=== PATIENT | male | born 1985 | race Caucasian/White ===

== ENCOUNTER 2021-12-10 06:18 | Emergency (ER) | payer OTHER, SELFPAY ==
[2021-12-10] VITALS (19 sets, daily range): BP systolic 133–153; BP diastolic 84–100; PULSE 94; RESP 18; TEMP 36.6; O2SAT 100
--- NOTE | ~2021-12-10 | CT_ITS ---
EXAMINATION: CT abdomen pelvis w con DATE: 12/10/2021 07:46 INDICATION: Right lower quadrant abdominal pain. Nausea. TECHNIQUE: Computed tomography (CT) of the abdomen and pelvis was performed with 100 mL Omnipaque 350 intravenous contrast. Automated exposure control and iterative reconstruction technique were employe d. The dose-length product was 361.48 mGy-cm. COMPARISON: None. FINDINGS: The visualized portions of the lung bases demonstrate mild atelectasis. No pleural effusion . The heart size is normal. No pericardial effusion. The liver, gallbladder, spleen, pancreas, adrena l glands, and left kidney are normal. There is a 6 mm stone in right kidney. There is mild right hydr onephrosis and hydroureter. There is a 6 mm stone in proximal right ureter. There are no dilated loop s of bowel. The appendix is normal. There are no pathologically enlarged lymph nodes. There is no celina e intraperitoneal fluid. There is mild thoracolumbar spondylosis. IMPRESSION: 1. 6 mm stone in proximal right ureter with mild right hydronephrosis and hydroureter. 2. 6 mm nonobstructing right kidney stone. Reviewed, dictated and finalized at location A. R EXCAVATOR OPERATOR IMPRESSION: 1. 6 mm stone in proximal right ureter with mild right hydronephrosis and hydro ureter. 2. 6 mm nonobstructing right kidney stone.
--- NOTE | ~2021-12-10 | XR_ITS ---
XR abdomen/kub 1V DATE: 12/10/2021 09:53 INDICATION: Right abdominal pain. Proximal right ureteral 6 mm calculus, mild right hydronephrosis an d hydroureter TECHNIQUE: AP projection, 2 views COMPARISON: December 10, 2021 CT abdomen pelvis FINDINGS: There is continued obstruction of the right ureter at the L3-4 level, with right hydrourete ronephrosis to this level. The urinary bladder is distended. Nonspecific bowel gas pattern, with multiple nondilated gas containing small bowel segments. The lung bases are clear. IMPRESSION: Persistent moderate right hydroureteronephrosis due to obstruction by ureteral calculus a t right L3-4 level Reviewed, dictated and finalized at [facility]. Reviewed, dictated and finalized at location B. STOS REMOVAL WORKER IMPRESSION: Persistent moderate right hydroureteronephrosis due to obstruction by ureteral calculus at right L3-4 level
[2021-12-10 06:45] LABS: Basophils Absolute Auto 0.1 K/mm3 (0.0-0.1); Basophils Percent Auto 0.7 % (0.2-1.2); Eosinophils Absolute Auto 0.1 K/mm3 (0-0.3); Eosinophils Percent Auto 1.9 % (0-4.4); Hematocrit 44.6 % (42.0-52.0); Hemoglobin 14.5 g/dL (14.0-18.0); Immature Granulocyte Absolute 0.04 K/mm3 (0.00-0.031); Immature Granulocyte Percent A 0.5 % (0-0.5); Lymphocytes Absolute Auto 2.51 K/mm3 (0.9-3.2); Lymphocytes Percent Auto 34.3 % (18.3-44.2); Mean Corpuscular HGB Conc 32.5 g/dl (32-36); Mean Corpuscular Hemoglobin 29.1 pg (26-34); Mean Corpuscular Volume 89.4 fl (80-100); Monocytes Absolute Auto 0.6 K/mm3 (0.1-0.6); Monocytes Percent Auto 8.2 % (2.6-8.5); Neutrophils Percent Auto 54.4 % (45.5-73.1); Platelet Count Result 236 k/mm3 (150-375); Red Blood Count 4.99 M/mm3 (4.6-6.20); Red Cell Distribution Width 13.3 % (11.5-14.5); White Blood Count 7.3 K/mm3 (4.5-10.0)
[2021-12-10 06:51] LABS: Add Urine Microscopic? YES; Appearance Urine Clear (Clear); Bilirubin Urine Negative (Negative); Blood Urine 2+ (Negative); Color Urine Yellow (Yellow); Glucose Urine UA Negative (Negative); Ketones Urine 1+ mg/dL (Negative); Leukocyte Esterase Ur Negative LEU/UL (Negative); Mucus Urine Rare /lpf; Nitrate Urine Negative (Negative); Protein Urine Negative (Negative); RBC Urine 51-75 /hpf (0-2); Specific Grav Ur 1.018 (1.001-1.035); Urobilinogen Urine Negative mg/dL (<2.0); WBC Urine 0-3 /hpf
[2021-12-10 07:00] LABS: Alanine Aminotransferase 31 U/L (4-50); Albumin Level 4.5 g/dL (3.5-5.1); Alkaline Phosphatase 88 U/L (38-126); Anion Gap 11 mmol/L (8-16); Aspartate Amino Transferase 33 U/L (17-59); Bilirubin,Total 0.7 mg/dL (0.2-1.3); Blood Urea Nitrogen 17 mg/dL (9-20); Calcium 9.3 mg/dL (8.4-10.2); Carbon Dioxide 29 mmol/L (22-30); Chloride 98 mmol/L (98-107); Estimated CRCL calculation 88 ml/min; Estimated Glomerular Filt Rate > 60; Glucose 153 mg/dL (65-110); Lipase 173 U/L (23-300); Potassium 4.1 mmol/L (3.4-5.0); Sodium 138 mmol/L (137-145)
[2021-12-10] MEDS: SODIUM CHLORIDE 0.9% IV 1,000 ML 999 ML IV CONT (07:29)
--- NOTE | 2021-12-10 07:40 | ED.ABDPAIN ---
HPI - Abdominal Pain General Chief Complaint: Abdominal Pain Stated Complaint: abd pain Time Seen by Provider: 12/10/21 07:19 Source: patient and family Limitations: no limitations History of Present Illness HPI narrative: Patient presents with pain at the right lower abdomen, sharp, no radiation associated with nausea started at 5:30 AM while trying to have a bowel movement. Currently the pain is little bit less tense than at the beginning. Patient denies history of abdominal surgery, fever, chills, vomiting, urinary symptoms or constipation Related Data Allergies Allergy/AdvReac Type Severity Reaction Status Date / Time No Known Allergies Allergy Verified 12/10/21 06:22 Review of Systems Review of Systems: CONSTITUTIONAL: Denies fever, chills, or sweats. EYES: Denies visual changes, redness, or discharge. ENT: Denies rhinorrhea, congestion, sore throat, or otalgia. CARDIOVASCULAR: Denies chest pain, palpitations, or edema. RESPIRATORY: Denies cough or dyspnea. GASTROINTESTINAL: Denies abdominal pain, nausea, vomiting, or diarrhea. GENITOURINARY: Denies dysuria or hematuria. SKIN: Denies rash or itching. MUSCULOSKELETAL: Denies back pain, joint pain, or myalgia. NEUROLOGIC: Denies headache, numbness, or weakness. PSYCHIATRIC: Denies anxiety or depression. [facility] Family History Family History Mother Family history of elevated blood lipids Other Cerebrovascular accident Diabetes mellitus Family history of coronary artery disease Hypertension Social History Social History Smoking status: Never smoker Alcohol intake: current Exam Narrative: General appearance: Well-developed, well-nourished Skin: Normal color Head: Normocephalic, nontraumatic Eyes: Clear conjunctiva ENT: Oropharynx normal, ears normal, nose normal Neck: Supple, nontender Chest and respiratory: Airway patent, no respiratory distress, no accessory muscle use Heart: Regular rate/rhythm Abdomen: Soft, mild to moderate tenderness right upper quadrant, quiet bowel sounds Vascular: Normal peripheral pulses, normal capillary refill. Musculoskeletal: Normal range of motion, nontender back Neurologic: Alert and oriented ?3, FOOD VENDOR is normal as tested, no gross motor deficit Course Course Emergency Course: Stable Consultations Consultation #1: Dr. Dumont, urologist, lithotripsy tomorrow Date: 12/10/21 Time: 10:46 Vital Signs Vital signs: Vital Signs Temperature 36.6 C 12/10/21 06:23 Pulse Rate 94 12/10/21 06:23 Respiratory Rate 18 12/10/21 06:23 Blood Pressure 148/100 H 12/10/21 06:23 Pulse Oximetry 100 12/10/21 06:23 Temperature 36.6 C 12/10/21 06:23 Pulse Rate 94 12/10/21 06:23 Respiratory Rate 18 12/10/21 06:23 Blood Pressure 148/100 H 12/10/21 06:23 Pulse Oximetry 100 12/10/21 06:23 MDM - Abdominal Pain MDM Narrative Medical decision making narrative: Work-up showed 6 mm stone right proximal ureter, urology was notified, scheduled for lithotripsy tomorrow Lab Data Result diagrams: 12/10/21 06:29 12/10/21 06:29 Labs: Lab Results 12/10/21 12/10/21 12/10/21 Range/Units 06:29 06:29 06:41 WBC 7.3 (4.5-10.0) K/mm3 RBC 4.99 (4.6-6.20) M/mm3 Hgb 14.5 (14.0-18.0) g/dL Hct 44.6 (42.0-52.0) % MCV 89.4 (80-100) fl MCH 29.1 (26-34) pg MCHC 32.5 (32-36) g/dl RDW 13.3 (11.5-14.5) % Plt Count 236 (150-375) k/mm3 MPV 9.0 (7.4-10.4) fl Immature Gran % (Auto) 0.5 (0-0.5) % Neut % (Auto) 54.4 (45.5-73.1) % Lymph % (Auto) 34.3 (18.3
--- NOTE | 2021-12-10 07:40 | PC.NURSE ---
Patient transported out of ED to CT. Patient states he only has mild, tolerable pain at this time.
[2021-12-10] MEDS: ONDANSETRON INJ 4 MG/2 ML VIAL IV PUSH (08:14)
[2021-12-10] MEDS: HYDROmorphone HCL INJ (*CRX) 1 MG/ML SYR 0.5 MG IV PUSH (08:14)
[2021-12-10] MEDS: TAMSULOSIN HCL 0.4 MG CAPSULE PO (09:21)
--- NOTE | 2021-12-10 10:01 | PC.NURSE ---
Patient returned from Radiology. Resting comfortably with significant other at bedside. Call light within reach.
--- NOTE | 2021-12-10 12:25 | WPDURCON ---
Assessment and Plan Assessment and plan (1) Kidney stone: Code(s): N20.0 - Calculus of kidney Status: Acute Assessment and Plan: NOn obstructive, will attempt to treat during Right ESWL. (2) Ureteral stone with hydronephrosis: Code(s): N13.2 - Hydronephrosis with renal and ureteral calculous obstruction Status: Acute Assessment and Plan: Ok to discharge home on pain meds, anti-emetics, and to strain urine. Will plan to schedule a RIght ESWL tomorrow at [facility] with Dr. Dumont. Do not take any NSAID's. Urology Consult Note HPI Date Seen: 12/10/21 Primary Care Provider: Tomás Holm MD Consult Narrative Narrative: Reji Sandy is a 36 year old male who presented to the ER this morning after acute onset of pelvic pain, nausea and frequency to urinate during a BM this morning around 0500am. He denies dysuria, hematuria, flank pain or fever. WBC is 7.3, Creatinine is 1.00, UA shows 2+ blood only, no urine culture obtained. CT shows a 6mm right proximal ureteral stone and mild right hydronephrosis as well as a 6mm non obstructive right renal stone. His pain and nausea are now well controlled with medications. KUB was done but stone is not well visualized d/t contrast, however hydro is noted on KUB indicating obstruction of stone. He has no prior history of kidney stones. Review of Systems Cardiovascular: Cardiovascular: Denies chest pain Respiratory: Respiratory: Reports no additional respiratory complaints Gastrointestinal: Gastrointestinal: Reports abdominal pain, Reports nausea and Denies vomiting Genitourinary: Genitourinary: Denies hematuria, Denies dysuria, Denies flank pain and Reports urinary urgency [facility] Past Medical History Medical History BMI 26.0-26.9,adult BMI 27.0-27.9,adult Dermatitis Mixed hyperlipidemia Viral wart on finger Resolved with cryotherapy Surgical History Surgical History S/P lateral meniscal repair Family History Family History Mother Ureter cancer Grandparent Diabetes mellitus Grandparent Acute myocardial infarction Heart disease Hypertension Grandparent Dementia Grandparent Acute myocardial infarction Cerebrovascular accident Hypertension Mother Family history of elevated blood lipids Other Family history of coronary artery disease Social History Social History Smoking packs per day: 0 Smoking cigarettes per day: 0.0 Years smoked: 0 Smoking pack-years: 0.00 Smoking status: Never smoker Alcohol intake: never Substance use: never Gender identity (if verbalized by the patient): Male Spiritual care concerns: No Meds Home Medications and Allergies Home Medications Medication Instructions Recorded Confirmed Type No Home Medications 07/29/21 07/29/21 History hydrocodone-acetaminophen 1 tablet PO Q4H #20 tablet 12/10/21 Rx ondansetron 4 mg PO Q4H #10 tablet 12/10/21 Rx tamsulosin [Flomax] 0.4 mg PO DAILY #10 cap 12/10/21 Rx Allergies Allergy/AdvReac Type Severity Reaction Status Date / Time No Known Allergies Allergy Verified 12/10/21 12:18 Vital Signs Vital Signs - 24 hr 12/10/21 06:23 12/10/21 07:02 12/10/21 07:50 Temperature 97.8 F Pulse Rate 94 Respiratory Rate 18 Blood Pressure 148/100 H 144/98 H Pulse Oximetry 100 100 12/10/21 07:51 12/10/21 08:00 12/10/21 08:02 Temperature Pulse Rate Respiratory Rate Blood Pressure 153/94 H 151/99 H Pulse Oximetry 100 100 100 12/10/21 08:15 12/10/21 08:30 12/10/21 08:45 Temperature Pulse Rate Respiratory Rate Blood Pressure Pulse Oximetry 100 100 100 12/10/21 09:00 12/10/21 09:02 12/10/21 09:15 Te
== END 2021-12-10 11:07 | disposition home or self-care (01) ==
PROVIDERS: Emergency Medicine; Emergency Provider Emergency Medicine; PCP Family Medicine
DX: N13.2 Hydronephrosis with renal and ureteral calculous obstruction (principal); E78.5 Hyperlipidemia, unspecified
CPT/HCPCS: 36415; 74018; 74177; 80053; 81001; 83690; 85025; 96361; 96374; 96375; 99284; A9270; J1170; J2405; J7030; Q9967

== ENCOUNTER → 2021-12-11 09:18 | Outpatient (CLI) | payer OTHER, SELFPAY ==
[2021-12-11 12:27] LABS: SARS-CoV-2 RNA PCR Negative
== END ==
PROVIDERS: PCP Family Medicine; Visit Provider Urology
DX: Z01.812 Encounter for preprocedural laboratory examination (principal); Z20.822 Contact with and (suspected) exposure to COVID-19
CPT/HCPCS: C9803; U0003; U0005

== ENCOUNTER 2021-12-12 01:07 | Day surgery (SDC) | payer OTHER, SELFPAY ==
[2021-12-11 09:40] VITALS: BMI 26.6
--- NOTE | 2021-12-11 09:46 | PC.NURSE ---
Report to the Outpatient Waiting Room, entrance under the green pavilion located off [facility], at time 1100 on date 12/12/21. OR Time: 1300. - You and your visitor will be asked a series of questions to screen for COVID 19 for your protection. - A mask is required within the hospital. One visitor will be allowed to accompany the patient into the hospital. Patients visitor will be instructed to remain with patient at all times or leave the building. We will allow the visitor to come back to the postoperative area when patient is ready. Preoperative COVID Testing Requirements: COVID TEST 12/11 AT 0945 No COVID Test needed if: (proof is required; if not received patient will have Rapid Test prior to entry) - Patient has received COVID Vaccine at least 14 days prior to procedure date or - Patient has positive COVID test result within last 90 days of surgery date. COVID Test needed if above criteria is not met If not COVID vaccinated a COVID test must be conducted within 72 hours of surgery and patient is asked to isolate self from time of testing until procedure. You will go to the [facility] for your COVID testing. The [facility] site is located at the corner of [address] from [facility]. You will only be called if COVID results are positive and your surgeon may reschedule your elective surgery date. Patients may have clear liquids (water, carbonated beverages, clear teas, apple juice) until 3 hours prior to surgery with a maximum of 20 ounces. - No food from midnight until time of surgery Take the following medications with a SIP of water the morning of surgery: PAIN PILL (IF NEEDED) Medications to discontinue per physician: N/A Date to take last dose: N/A Please no make-up, nail guamanian, hairspray, perfume, deodorant, or body powder the day of surgery. No jewelry (including any body piercings) or valuables the day of surgery, leave them at home. Please take a shower or bath the night before, or the morning of, surgery with an antibacterial soap. Wear comfortable, loose fitting clothing. Children are encouraged to wear pajamas. - Jewelry must be removed prior to entering the operating room. Rings and piercings that are not removed may be cut off. - The hospital will not accept responsibility for valuables. - Please leave all valuables, including medications, at home the day of surgery. If you are going home after surgery, a licensed stage driver must drive you home. - NO public transportation without another adult. - We recommend that an adult stay with you for 24 hours following discharge. - We also recommend that you do not drive, make important decision, drink alcoholic beverages, or take any drugs that were not prescribed by your health care provider for at least 24 hours after your discharge time. Follow any additional instructions given to you from your surgeon. Telephone instructions given to NOEMY DUNLAP and asked if any additional questions and then verbalized understanding. Patient advised to call surgeon office or pre surgery nurse liaison [phone] if any additional questions.
[2021-12-12] VITALS (7 sets, daily range): BP systolic 118–132; BP diastolic 68–86; PULSE 49–60; RESP 10–18; TEMP 36.3–36.9; O2SAT 100
--- NOTE | ~2021-12-12 | XR_ITS ---
EXAMINATION: XR retrograde pyelo w/stent RT DATE: 12/12/2021 14:56 INDICATION: Right-sided renal stone TECHNIQUE: 4 fluoroscopic images of the abdomen and pelvis were obtained during procedure performed edvin Buck. Radiologist was not present for the imaging or procedure. The amount of fluoroscopy t naman used during this procedure was 0.5 minutes. COMPARISON: 12/12/2021 FINDINGS: Images demonstrate placement of a right internal ureteral stent in expected position with loops forme d in the right renal pelvis and in the bladder. Some contrast is been injected into the right renal c ollecting system which demonstrates mild hydronephrosis. The stone seen on the prior KUB projecting o pito the right transverse process of L3 is not visualized and has either been extracted or refluxed ba ck into the contrast opacified right renal collecting system. IMPRESSION: 1. Placement of a right internal ureteral stent in expected position. 2. Previous identified stone in the proximal right ureter is not visualized and has likely been extra cted or refluxed back into the contrast opacified right renal collecting system. Correlate with proce dure note. Reviewed, dictated and finalized at location A. TEST DESK WORKER IMPRESSION: 1. Placement of a right internal ureteral stent in expected position. 2. Previous identified stone in the proximal right ureter is not visualized and has likely been extracted or refluxed back into the contrast opacified right r enal collecting system. Correlate with procedure note.
--- NOTE | ~2021-12-12 | XR_ITS ---
EXAMINATION: XR abdomen/kub 1V INDICATION: Right ureteral stone TECHNIQUE: Supine views of the abdomen were obtained on 2 radiographs. COMPARISON: 12/10/2021 FINDINGS: There is a 7 mm stone in the proximal right ureter projecting at the level of the right L3 transverse process. No additional urolithiasis identified. The bowel gas pattern is normal. IMPRESSION: 1. 7 mm stone of the proximal right ureter. Reviewed, dictated and finalized at location A. TRUCTION FLAGGER
[2021-12-12] MEDS: LACTATED RINGERS 1,000 ML 30 ML IV CONT ×2 (11:08→15:28)
--- NOTE | 2021-12-12 12:30 | WPDHPUPDATE1 ---
History and Physical Update Update Date/Time: 12/12/21 12:30 History and Physical has been reviewed, including an updated exam of the patient. There are NO changes in the patient's condition. Risks, benefits, and alternatives have been discussed and questions answered. Patient agrees to proceed with procedure. Proceed with cysto, right retrograde, right stent , possible ureterosocpy with stone extraction, laser.
--- NOTE | 2021-12-12 13:55 | WPDANESEPPF ---
Anes - Initial Pre Proc Eval Procedure: Operation Date: 12/12/21 13:00 Proposed Procedures p Cystoscopy, Right Ureteroscopy, Right Retrograde Pyelogram, Right Stone Extraction, Possible Right Stent Placement, - Chris Buck MD s Possible Holmium Laser Procedure - Chris Buck MD Date/Time: 12/12/21 13:55 Surgeon: Chris Buck MD Pre Op Diagnosis: right kidney stone Patient Data Age: 36 Gender: M Height: 1.75 m Weight: 82 kg Last Vital Signs Temp 98.4 F 12/12/21 11:08 Pulse 57 L 12/12/21 11:08 Resp 18 12/12/21 11:08 BP 119/68 12/12/21 11:08 Pulse Ox 100 12/12/21 11:08 Allergies Allergy/AdvReac Type Severity Reaction Status Date / Time No Known Allergies Allergy Verified 12/12/21 11:18 Home Medications Medication Instructions Recorded Confirmed Type hydrocodone-acetaminophen 1 tablet PO Q4H #20 tablet 12/10/21 12/11/21 Rx ondansetron 4 mg PO Q4H #10 tablet 12/10/21 12/11/21 Rx tamsulosin [Flomax] 0.4 mg PO DAILY #10 cap 12/10/21 12/11/21 Rx Patient hx anesthesia problems: none Family hx anesthesia problems: none Results Review: All pre-operative results and documents have been reviewed as part of the pre-operative evaluation. [facility] Past Medical History Medical History BMI 26.0-26.9,adult BMI 27.0-27.9,adult Dermatitis Mixed hyperlipidemia Viral wart on finger Resolved with cryotherapy Surgical History Surgical History S/P lateral meniscal repair Family History Family History Mother Ureter cancer Grandparent Diabetes mellitus Grandparent Acute myocardial infarction Heart disease Hypertension Grandparent Dementia Grandparent Acute myocardial infarction Cerebrovascular accident Hypertension Mother Family history of elevated blood lipids Other Family history of coronary artery disease Social History Social History Smoking packs per day: 0 Smoking cigarettes per day: 0.0 Years smoked: 0 Smoking pack-years: 0.00 Smoking status: Never smoker Alcohol intake: never Substance use: never Substance use type: does not use Living arrangements: with family Gender identity (if verbalized by the patient): Male Spiritual care concerns: No Anes - Eval Final PreProcedure Day of Procedure 12/12/21 13:55 Patient weight: overweight Heart: regular rate and rhythm Lungs: clear to auscultation Neurological: alert and oriented Last oral intake: >/= 8 hours ASA classification: II Emergent: no Anesthetic plan: proceed Anesthesia type and monitoring: general LMA and standard monitoring Results Review: All pre-operative results and documents have been reviewed as part of the pre-operative evaluation. Informed Consent: The patient's anesthetic plan and its attendant risks and benefits were discussed with the patient/family/POA. Questions were solicited and answers provided to the satisfaction of the patient/family/POA.
[2021-12-12] MEDS: ceFAZolin 2 GM/D5W 50 ML 2 GM/50 ML BAG IVPB (14:04)
[2021-12-12] MEDS: LIDOCAINE HCL 2% GEL UROJET 10 ML PKG MUCOUS MEM (14:17)
--- NOTE | 2021-12-12 14:51 | W.PM.PROC2 ---
Procedure Note - Detailed Date of Procedure 12/12/21 Pre-op Diagnosis right ureteral calculus 6 mm and 6 mm right renal calculus Post-op Diagnosis same Procedure Performed Cystoscopy, right retrograde pyelogram fluoroscopy was laser, stone extraction, right ureteral stent placement 4.8 Tajik contour Surgeon Chris Buck MD Anesthesia general Findings 6 mm right ureteral calculus as well as a 6 mm right renal calculus Description of Procedure Patient is taken to the operative suite correctly identified. Once anesthesia was obtained he was placed in dorsal lithotomy position and prepped and draped usual sterile fashion. A 19 Tajik scope was inserted into the urethra. There were no strictures. Prostate nonobstructive. Bladder without any tumors. Right ureteral orifice was cannulated with a guidewire. Ureteral access sheath was placed. Flexible ureteral scope was inserted the stone was localized in the proximal ureter. It was too large to retrieve 1 piece. We used the holmium laser fiber to fragment in multiple small pieces and send those for analysis. Some of the fragments went back to the kidney we will treat those. Upon evaluating the kidney there was a stone this was attached to a calyx. We went ahead and lasered this stone also in retrieve some of the larger pieces. Pyelogram was then performed to confirm placement of the stent. 4.8 Tajik contour stent was placed with the proximal end coiled in the renal pelvis and the distal in the bladder. Bladder was drained. 2% lidocaine was inserted into the urethra patient was taken recovery stable condition. He will follow up in a week's time for stent removal. Drains Yes Packing No Pathology yes Complications No immediate complications Condition stable Disposition PACU
--- NOTE | 2021-12-12 15:23 | SUR.PHASEI ---
1519 simple mask removed.
== END 2021-12-12 16:40 | disposition home or self-care (01) ==
PROVIDERS: PCP Family Medicine; Visit Provider Urology
PROC: (CPT 52352; principal; 2021-12-12 13:00)
PROC: (CPT 52356; 2021-12-12 13:00)
DX: N13.2 Hydronephrosis with renal and ureteral calculous obstruction (principal)
CPT/HCPCS: 52356; 74018; 74420; 82365; 88300; A9270; C1769; C1894; C2617; C9803; J0690; J2250; J2270; J2405; J2704; J7120; Q9966; U0003; U0005

== ENCOUNTER 2022-01-13 11:15 | Outpatient (CLI) | payer OTHER, SELFPAY ==
--- NOTE | ~2022-01-13 | XR_ITS ---
XR abdomen/kub 1V 01/13/2022 11:38 INDICATION: Right ureteral stone follow-up TECHNIQUE: KUB COMPARISON: 12/12/2021 FINDINGS: Bowel gas pattern is normal. Previously visualized right ureteral stone at the L3 level not seen on current study. There is no evidence of free air, mass, organomegaly, ascites or obstruction. No abnormal calculi are seen. The bones appear intact. IMPRESSION: 1: No acute abdominal abnormality identified. Reviewed, dictated and finalized at location A.
== END 2022-01-13 11:16 | disposition home or self-care (01) ==
PROVIDERS: PCP Family Medicine; Visit Provider Urology
DX: N20.1 Calculus of ureter (principal)
CPT/HCPCS: 74018

== ENCOUNTER 2023-08-24 11:52 | Emergency (ER) | payer OTHER, SELFPAY ==
[2023-08-24 12:02] VITALS: BP 148/85; PULSE 64; RESP 16; TEMP 36.9; O2SAT 99
[2023-08-24 12:04] VITALS: BP 148/85; PULSE 64; RESP 16; TEMP 36.9; O2SAT 99
--- NOTE | 2023-08-24 12:37 | ED.GENADULT ---
HPI - General Adult General Chief complaint: Wound/Laceration Stated complaint: Wound/Swelling Right Side Head Source: patient Mode of arrival: ambulatory Limitations: no limitations History of Present Illness HPI narrative: 38-year-old male presented for complaint of skin lesion to the right scalp x3 weeks. states it first appeared as a pimple. Has not applied anything to the site. Denies itching or pain. Endorses clear drainage at times. Denies family members with similar symptoms. Denies changes lotion soap detergent etc.. Patient also reports a small lump behind the right ear which feels like a bruise. patient has kids at home and does [employer]. Denies any other skin lesions or changes. Related Data Allergies Allergy/AdvReac Type Severity Reaction Status Date / Time No Known Allergies Allergy Verified 08/24/23 12:03 Review of Systems Review of Systems: CONSTITUTIONAL: Denies body aches, fever, chills, or sweats. EYES: Denies visual changes, redness, or discharge. ENT: Denies rhinorrhea, congestion CARDIOVASCULAR: Denies chest pain, palpitations, or edema. RESPIRATORY: Denies cough or dyspnea. GASTROINTESTINAL: Denies abdominal pain, nausea, vomiting, or diarrhea. SKIN: per HPI MUSCULOSKELETAL: Denies back pain, joint pain, or myalgia. NEUROLOGIC: Denies headache, numbness, tingling, or weakness. COUNT INCLUDES THE [facility] Past Medical History Medical History BMI 26.0-26.9,adult BMI 27.0-27.9,adult Dermatitis Mixed hyperlipidemia Viral wart on finger Resolved with cryotherapy Surgical History Surgical History S/P lateral meniscal repair Family History Family History Mother Ureter cancer Grandparent Diabetes mellitus Grandparent Acute myocardial infarction Heart disease Hypertension Grandparent Dementia Grandparent Acute myocardial infarction Cerebrovascular accident Hypertension Mother Family history of elevated blood lipids Other Family history of coronary artery disease Social History Social History Smoking packs per day: 0 Smoking cigarettes per day: 0.0 Years smoked: 0 Smoking pack-years: 0.00 Smoking status: Never smoker Alcohol intake: never Substance use: never Substance use type: does not use Living arrangements: with family Occupation/Education: occupation Gender identity (if verbalized by the patient): Male Spiritual care concerns: No Comments At time of signature, I have reviewed and agree with nursing past medical, surgical, social and family history unless otherwise noted. Please see nursing chart for further information. There is no relevant family history pertinent to the presenting complaint Exam Narrative: GENERAL: Well-appearing HEAD: Normocephalic, atraumatic. EYES: conjunctivae clear, and EOMI. ENT: Mucous membranes moist. Oropharynx without edema, erythema or lesions. NECK: Supple. No lymphadenopathy CHEST: Clear to auscultation. HEART: Regular rate and rhythm. SKIN: Warm, dry. Right scalp with approx 1cm diameter area of dried honey colored crust and flaky skin, nontender, nonfluctuant. Right posterior ear with mild tenderness and swelling c/w lymph node. Right posterior ear with scattered erythematous papules c/w folliculitis. NEURO: Alert and oriented x3. HENMT: Head images: 1. area of dried flaky skin lesion 2. area of scattered erythematous papules Course Course Emergency Course: Patient is aware of diagnosis, understands and agrees to treatment plan. Anticipatory guidance given. Patient agrees to follow-up as directed and is aware of reasons to seek care at the emergency department. Portions of this record may have been created with voice recognition software
== END 2023-08-24 12:51 | disposition home or self-care (01) ==
PROVIDERS: Emergency Provider Nurse Practitioner Family; PCP Family Medicine
DX: L30.9 Dermatitis, unspecified (principal); E78.2 Mixed hyperlipidemia
CPT/HCPCS: 99213; G0463

== ENCOUNTER 2025-07-11 12:35 | Emergency (ER) | payer OTHER, SELFPAY ==
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
[2025-07-11 12:39] VITALS: BP 156/96; PULSE 83; RESP 16; TEMP 37.2; O2SAT 98
--- OUTSIDE RECORDS SUMMARY | 2025-07-11 12:43 | XMS_ITS | Encounter Summary ---
Author Organization [facility] Address [address] [place] [address] Care Team Providers Care Ballet Master/Mistress Name Role Phone Saul Varela MD Primary Care Provider Encounter Details Date Type Department Care Team (Late st Contact Info) Description 08/05/2006 Outpatient Historical [facility] Family Medicine [facility] [address] [place] [address] [place] 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 [place] [address] PCP - General 10/17/06 documented as of this encounter
--- OUTSIDE RECORDS SUMMARY | 2025-07-11 12:43 | XMS_ITS | Encounter Summary ---
Author Organization [facility] Address [address] [place] [address] Care Team Providers Care Media Services Director Name Role Phone Saul Varela MD Primary Care Provider [phone] Encounter Details Date Type Department Care Team (Latest Contact Info) Description 08/05/2006 Outpatient Historical [facility] [address] 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 GONORRHOEAE, DNA Routine 08/05/2006 7:24 PM CDT URINALYSIS WITH REFLEX CULTURE Routine 08/05/2006 7:24 PM CDT URINALYSIS W/REFLEX MICROSCOPIC Routine 08/05/2006 7:24 PM CDT documented in this encounter Results * URINALYSIS (08/05/2006 7:24 PM CDT) COLOR UA Yellow INTERFACE SYSTEM CLARITY UA Clear Clear INTERFACE SYSTEM SPECIFIC GRAVITY UA 1.022 1.001 - 1.035 INTERFACE SYSTEM PH UA 6.0 5.0 - 8.0 INTERFACE SYSTEM LEUKOCYTE ESTERASE UA Negative Negative INTERFACE SYSTEM NITRITE UA Negative Negative INTERFACE SYSTEM PROTEIN UA Negative Negative INTERFACE SYSTEM GLUCOSE UA Negative Negative INTERFACE SYSTEM KETONES UA Negative Negative INTERFACE SYSTEM UROBILINOGEN UA <1 <=1 mg/dL INTE RFACE SYSTEM BILIRUBIN UA Negative Negative INTERFA CE SYSTEM BLOOD UA Negative Negative INTERFACE SYSTEM 08/05/2006 7:24 PM CDT Result Jluis Pemberton MD URINE ORDERABLES Final Res ult Performing Organization Address [facility] Phone Number INTERFACE SYSTEM Refer to clinic/hospital department * URINALYSIS WITH REFLEX CULTURE (08/05/2006 7:24 PM CDT) URINE CULTURE ORDER Not indicated INTERFACE SYSTEM Comment: Criteria for a reflex culture include one or more of the following: Abn ormal nitrite, leukocyte esterase, WBCs or RBCs. Lack of qualifying criteria does not exclude the possiblity of a urinary tract infection. Dilute urine, drug interference, etc. may decrease the sensitivity of the criteria analytes. 08/05/2006 7:24 PM CDT Result Jluis Pemberton MD URINE ORDERABLES Final Res ult Performing Organization Address [facility] Phone Number INTERFACE SYSTEM Refer to clinic/hospital department * CHLAMYDIA/N. GONORRHOEAE, DNA (08/05/2006 7:24 PM CDT) CHLAMYDIA TRACHOMATIS DNA NOT DETECTED NOT DETECTED INTERFACE SYSTEM NEISSERIA GONORRHOEAE DNA NOT DETECTED NOT DETECTED INTERFACE SYSTEM Comment: Lab test performed by: [facility] [id number] [place] [address] LARRY VASQUEZ MD 08/05/2006 7:24 PM CDT Result Jluis Pemberton MD BODY FLUIDS AND STOOLS Fin al Result Performing Organization Address [facility] Phone Number INTERFACE SYSTEM Refer to clinic/hospital department documented in this encounter Visit Diagnoses Diagnosis Dysuria- Primary documented in this encounter Care Teams Media Services Director Relationship Specialty [place] [address] [facility] [facility] [place] [address] PCP - General 10/17/06 documented as of this encounter
--- OUTSIDE RECORDS SUMMARY | 2025-07-11 12:43 | XMS_ITS | Encounter Summary ---
Author Organization [facility] Address [address] [place] [address] Care Team Providers Care Glue Specialty Supervisor Name Role Phone Saul Varela MD Primary Care Provider [phone] Encounter Details Date Type Department Care Team (Late st Contact Info) Description 10/17/2006 Emergency [facility] Chuck Patel Jr., MD [address] [place] [address] Er, Authorized P NO ADDRESS ON FILE Streptococcal Sore Throat (Primary Dx) Social History Tobacco Use Types Packs/Day Years Used Date Smoking Tobacco: Never Assessed Sex and Gender Information Value Date Recorded Sex Assigned at Not on file 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
--- OUTSIDE RECORDS SUMMARY | 2025-07-11 12:43 | XMS_ITS | Encounter Summary ---
Author Organization [facility] Address 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
--- OUTSIDE RECORDS SUMMARY | 2025-07-11 12:43 | XMS_ITS | Encounter Summary ---
Author Organization [facility] Address 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 Gender Identity Not on file Sexual Orientation Not on file documented as of this encounter Last Filed Vital Signs Vital Sign Reading Time Taken Comments Blood Pressure 122/80 03/03/2005 10:30 AM CDT Pulse 76 03/03/2005 10:30 AM CDT Temperature - - Respiratory Rate - - Oxygen Saturation - - Inhaled Oxygen Concentration - - Weight 103 kg (227 lb) 03/03/2005 10:30 AM CDT Height - - Body Mass Index - - documented in this encounter Plan of Treatment Not on file documented as of this encounter Visit Diagnoses Not on filedocumented in this encounter Care Teams Candle Molder Hand Relationship Specialty [place] [address] [place] [address] PCP - General 10/17/06 documented as of this encounter
--- OUTSIDE RECORDS SUMMARY | 2025-07-11 12:43 | XMS_ITS | Encounter Summary ---
Author Organization [facility] Address [address] [place] [address] Care Team Providers Care Semi Automatic Sewing Machine Operator Name Role Phone Saul Varela MD Primary Care Provider [phone] Encounter Details Date Type Department Care Team (Late st Contact Info) Description 06/24/2004 Outpatient Historical [facility] [place] [address] [place] [address] [place] 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 RN DIALYSIS Gender Identity Not on file Sexual Orientation Not on file documented as of this encounter Last Filed Vital Signs Vital Sign Reading Time Taken Comments Blood Pressure 138/100 06/24/2004 10:40 AM CDT Pulse 72 06/24/2004 10:40 AM CDT Temperature 36.6 C (97.9 F) 06/24/2004 10:40 AM CDT Respiratory Rate 20 06/24/2004 10:40 AM CDT Oxygen Saturation - - Inhaled Oxygen Concentration - - Weight 102.1 kg (225 lb) 06/24/2004 10:40 AM CDT Height - - Body Mass Index - - documented in this encounter Plan of Treatment Not on file documented as of this encounter Visit Diagnoses Not on filedocumented in this encounter Care Teams Semi Automatic Sewing Machine Operator Relationship Specialty [place] [address] [facility] [place] [address] PCP - General 10/17/06 documented as of this encounter
--- OUTSIDE RECORDS SUMMARY | 2025-07-11 12:43 | XMS_ITS | Encounter Summary ---
Author Organization [facility] Address [address] [facility] [address] [facility] Attn: Epic Prelude ADT IAN [place] [address] Care Team Providers Care Marketing Project Lead Name Role Phone Saul Varela MD Primary Care Provider [phone] Encounter Details Date Type Department Care Team (Latest Contact Info) Description 08/05/2006 Orders Only Manpreet Pemberton MD [facility] [address] [place] [address] Social History Tobacco Use Types Packs/Day Years Used Date Smoking Tobacco: Never Assessed Sex and Gender Information Value Date Recorded Sex Assigned at Not on file 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 Right Radial, Regular TEMPERATURE: 98.2??f. Oral WEIGHT: 193lbs. ALLERGIES: No known drug allergies. CHIEF COMPLAINT burning during urination. est/quest Burning during urination for 7 months. Constant pain w/ urination. No pain during sex. No bumps on outside of penis. Notices a small lamin on inside opening of penis. No discharge. Nothing has happened like this before. Has had unprotected sex w/ 2 women since December. No fever/chills. Believes he mayhave a STD. No fever, chills. No arthritis/arthralgias. HISTORY: ROS: GENERAL: Normal activity and energy level, no change in appetite. No major weight gain or loss. No malaise, chills, fever, diaphoresis. RESPIRATORY: No dyspnea, cough, hemoptysis or wheezing. : See HISTORY OF PRESENT ILLNESS. GI: No abdominal pain, nausea, vomiting, diarrhea, constipation, melena, or hematochezia. NEUROLOGIC: . PHYSICAL EXAMINATION: CONSTITUTIONAL: GENERAL APPEARANCE: Healthy appearing patient in no distress. GENITOURINARY: SCROTUM/CONTENTS: Normal in appearance with no hydrocele, spermatocele, tenderness of cord, or testicular mass. PHALLUS: Uncircumcised, no lesions noted. SKIN: SKIN: Warm, dry, no diaphoresis, no significant lesions, irritation, rashes or ulcers. No induration, obvious subcutaneous nodules or tightening. OFFICE PROCEDURES: URINALYSIS RESULTS WBC: WBC`s were negative. NITRITE: nitrites were negative. UROBILINOGEN urobilinogen was normal. PROTEIN: protein was negative. pH: pH was 7. U/A BLOOD: blood was negative. SPECIFIC GRAVITY: specific gravity was 1.025. KETONES: ketones were negative. BILIRUBIN: bilirubin was negative. GLUCOSE: glucose was negative. ASSESSMENT/PLAN: 788.1-DYSURIA ASSESSMENT: Likely chlamydia infection. Less likely GC or herpes. Will treat now and send urine forDNA probe. D/w patient risk of STD's to him and woman. Pt professes understanding. Will d/w him next step if DNA positive - treating partners. STATUS: MEDICATIONS: AZITHROMYCIN ORAL TABLET 500 MG, 2 pills together, 2 Dispensed, status: NEW PRESCRIPTION, 08/05/2006. CIPRO ORAL TABLET 500 MG, 1 time dose, 1 Dispensed, status: NEW PRESCRIPTION, 08/05/2006. LAB ORDERS: Order number: [id number] Test Ordered: URINALYSIS, COMPLETE W/REFLEX TO CULTURE 3020 Order number: [id number] Test Ordered: CHLAMYDIA/NESISSERIA GONORRHOEAE DNA, SDA, OTV 64174 Order number: [id number] Test Ordered: URINALYSIS W/O MICRO [id number] RETURN VISIT: The patient will be contacted to return after we review the labs ordered above. 08/06/06 11:37 a Electronically signed by Chuck Pemberton MD. TEACHING PHYSICIAN COMMENTS: I have reviewed the resident's note and I agree with the resident's evaluation and plan. Electronically Signed by: Saul Varela MD on July documented in this encounter Plan of Treatment Not on file documented as of this encounter Visit Diagnoses Not on filedocumented in this encounter Care Teams Marketing Project Lead Relationship Specialty [place] [address] [facility] [address] [place] [address] PCP - General 10/17/06 documented as of this encounter
--- OUTSIDE RECORDS SUMMARY | 2025-07-11 12:43 | XMS_ITS | Encounter Summary ---
Author Organization [facility] Address [address] [place] [address] Care Team Providers Care Solar Maintenance Technician Name Role Phone Saul Varela MD Primary Care Provider [phone] Encounter Details Date Type Department Care Team (Late st Contact Info) Description 02/06/2005 Outpatient Historical [facility] Family Medicine [place] [address] [place] [address] [place] 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 Gender Identity Not on file Sexual Orientation Not on file documented as of this encounter Last Filed Vital Signs Vital Sign Reading Time Taken Comments Blood Pressure 144/76 02/06/2005 10:15 AM CDT Pulse 72 02/06/2005 10:15 AM CDT Temperature - - Respiratory Rate 16 02/06/2005 10:15 AM CDT Oxygen Saturation - - Inhaled Oxygen Concentration - - Weight 108 kg (238 lb) 02/06/2005 10:15 AM CDT Height - - Body Mass Index - - documented in this encounter Plan of Treatment Not on file documented as of this encounter Visit Diagnoses Not on filedocumented in this encounter Care Teams Solar Maintenance Technician Relationship Specialty [place] [address] [place] [address] PCP - General 10/17/06 documented as of this encounter
--- OUTSIDE RECORDS SUMMARY | 2025-07-11 12:43 | XMS_ITS | Clinical Summary ---
Author Organization [facility] Address [address] [facility] Attn: Epic Prelude ADT [place]AN [place] [address] Care Team Providers Care Foundation Assistant Name Role Phone Saul Varela MD Primary Care Provider [phone] Allergies Active Allergy Reactions Criticality Noted Date Comments No Known Allergies 08/12/2006 Medications CIPRO 500 MG TAB 1 time dose 1.00 0 08/05/2006 Active AZITHROMYCIN 500 MG TAB 2 pills together 2.00 0 08/05/2006 Active Active Problems Problem Noted Date Diagnosed Date Acute upper respiratory infections of unspecifie d site 09/29/2006 Dysuria 08/05/2006 Acute gastritis without mention of hemorrhage Allergic rhinitis due to other allergen 02/07/20 05 Sebaceous cyst 02/06/2005 Elevated blood pressure read ing without diagnosis of hypertension 06/24/2004 Pilonidal cyst with abscess 05/26/2004 Social History Tobacco Use Types Packs/Day Years Used Date Smoking Tobacco: Never Assessed Sex and Gender Information Value Date Recorded Sex Assigned at Not on file Legal 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 Gender Identity Not on file Sexual Orientation Not on file Last Filed Vital Signs Vital Sign Reading Time Taken Comments Blood Pressure 114/80 09/29/2006 4:00 PM COOK FISH [employer] CHIPS Pulse 76 09/29/2006 4:00 PM COOK [employer] CHIPS Temperature 36.6 C (97.9 F) 06/24/2004 10:40 AM CDT Respiratory Rate 16 02/06/2005 10:15 AM CDT Oxygen Saturation - - Inhaled Oxygen Concentration - - Weight 88.5 kg (195 lb) 09/29/2006 4:00 PM COOK FISH [employer] CHIPS Height - - Body Mass Index - - Plan of Treatment Health Maintenance Due Date Last Done Comments DTAP/TDAP/TD VACCINES (1 - Tdap) 2002 HEPATITIS B VACCINES (1 of 3 - 19+ 3-dose series) 02/23 HPV VACCINES (1 - 3-dose SCDM series) 2010 INFLUENZA VACCINE (#1) 2025 Care Teams Foundation Assistant Relationship Specialty [place] [address] [facility] [place] [address] PCP - General 10/17/06
--- OUTSIDE RECORDS SUMMARY | 2025-07-11 12:43 | XMS_ITS | Encounter Summary ---
Author Organization [facility] Address 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 Gender Identity Not on file Sexual Orientation Not on file documented as of this encounter Last Filed Vital Signs Vital Sign Reading Time Taken Comments Blood Pressure 114/80 09/29/2006 4:00 PM STEAM HEATING INSTALLER Pulse 76 09/29/2006 4:00 PM STEAM HEATING INSTALLER Temperature - - Respiratory Rate - - Oxygen Saturation - - Inhaled Oxygen Concentration - - Weight 88.5 kg (195 lb) 09/29/2006 4:00 PM STEAM HEATING INSTALLER Height - - Body Mass Index - - documented in this encounter Plan of Treatment Not on file documented as of this encounter Visit Diagnoses Not on filedocumented in this encounter Care Teams Neurodiagnostic Tech Relationship Specialty [place] [address] [address] [place] [address] PCP - General 10/17/06 documented as of this encounter
--- OUTSIDE RECORDS SUMMARY | 2025-07-11 12:43 | XMS_ITS | Encounter Summary ---
Author Organization [facility] Address [address] [place] [address] Care Team Providers Care Hvac Sales Representative Name Role Phone Saul Varela MD Primary Care Provider [phone] Encounter Details Date Type Department Care Team (Late st Contact Info) Description 08/05/2006 Outpatient Historical [facility] Family Medicine [facility] [address] [place] [address] [place] 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 [place] [address] PCP - General 10/17/06 documented as of this encounter
--- OUTSIDE RECORDS SUMMARY | 2025-07-11 12:43 | XMS_ITS | Encounter Summary ---
Author Organization [facility] Address [address] [place] [address] Care Team Providers Care Application Development Specialist Name Role Phone Saul Varela MD Primary Care Provider [phone] Encounter Details Date Type Department Care Team (Late st Contact Info) Description 05/26/[address] Outpatient [address] 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 Gender Identity Not on file Sexual Orientation Not on file documented as of this encounter Last Filed Vital Signs Vital Sign Reading Time Taken Comments Blood Pressure 140/86 05/26/2004 9:20 AM CDT Pulse - - Temperature - - Respiratory Rate - - Oxygen Saturation - - Inhaled Oxygen Concentration - - Weight 98.4 kg (217 lb) 05/26/2004 9:20 AM CDT Height - - Body Mass Index - - documented in this encounter Plan of Treatment Not on file documented as of this encounter Visit Diagnoses Not on filedocumented in this encounter Care Teams Application Development Specialist Relationship Specialty [place] [address] [place] [address] PCP - General 10/17/06 documented as of this encounter
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
--- OUTSIDE RECORDS SUMMARY | 2025-07-11 14:07 | XMS_ITS | Encounter Summary ---
Author Organization [facility] Address [address] [place] [address] Care Team Providers Care Commodity Director Name Role Phone Saul Varela MD Primary Care Provider [phone] Encounter Details Date Type Department Care Team (Late st Contact Info) Description 02/06/2005 Outpatient Historical [facility] Family Medicine [place] [address] [place] [address] [place] 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 [place] [address] PCP - General 10/17/06 documented as of this encounter
--- OUTSIDE RECORDS SUMMARY | 2025-07-11 14:07 | XMS_ITS | Encounter Summary ---
Author Organization [facility] Address 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
--- OUTSIDE RECORDS SUMMARY | 2025-07-11 14:07 | XMS_ITS | Encounter Summary ---
Author Organization [facility] Address [address] [place] [address] Care Team Providers Care Certified Shorthand Reporter Name Role Phone Saul Varela MD Primary Care Provider [phone] Encounter Details Date Type Department Care Team (Late st Contact Info) Description 05/26/2004 Outpatient Historical [facility] Medicine 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 [place] [address] PCP - General 10/17/06 documented as of this encounter
--- OUTSIDE RECORDS SUMMARY | 2025-07-11 14:07 | XMS_ITS | Encounter Summary ---
Author Organization [facility] Address [address] [place] [address] Care Team Providers Care Rugby League Footballer Name Role Phone Saul Varela MD Primary Care Provider [phone] Encounter Details Date Type Department Care Team (Late st Contact Info) Description 06/24/2004 Outpatient Historical [facility] Family Medicine [place] [address] [place] [address] [place] 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 [place] [address] PCP - General 10/17/06 documented as of this encounter
--- OUTSIDE RECORDS SUMMARY | 2025-07-11 14:07 | XMS_ITS | Encounter Summary ---
Author Organization [facility] Address [address] Attn: Epic Prelude ADT IAN MALIN [address] Care Team Providers Care Electric Switch Repairer Name Role Phone Saul Varela MD Primary Care Provider [phone] Encounter Details Date Type Department Care Team (Latest Contact Info) Description 08/05/2006 Orders Only Manpreet Pemberton MD [facility] [address] 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 LAB ORDERS: Order number: [id number] Test Ordered: URINALYSIS, COMPLETE W/REFLEX TO CULTURE 3020 Order number: [id number] Test Ordered: CHLAMYDIA/NESISSERIA GONORRHOEAE DNA, SDA, OTV 63407 Order number: [id number] Test Ordered: URINALYSIS W/O MICRO 00362 RETURN VISIT: The patient will be contacted [...] on filedocumented in this encounter Care Teams Electric Switch Repairer Relationship Specialty [place] [address] [facility] [address] [place] [address] PCP - General 10/17/06 documented as of this encounter
--- OUTSIDE RECORDS SUMMARY | 2025-07-11 14:07 | XMS_ITS | Encounter Summary ---
Author Organization [facility] Address [address] [place] [address] Care Team Providers Care Senior Product Manager Name Role Phone Saul Varela MD Primary Care Provider [phone] Encounter Details Date Type Department Care Team (Latest Contact Info) Description 08/05/2006 Outpatient Historical [facility] Family Medicine [facility] [address] [facility] [address] 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 GONORRHOEAE, DNA (08/05/2006 7:24 PM CDT) CHLAMYDIA TRACHOMATIS DNA NOT DETECTED NOT DETECTED INTERFACE SYSTEM NEISSERIA GONORRHOEAE DNA NOT DETECTED NOT DETECTED INTERFACE SYSTEM Comment: Lab test performed by: [facility] [id number] [place] [id number] LARRY VASQUEZ MD 08/05/2006 7:24 PM CDT Result Jluis Pemberton MD BODY FLUIDS AND STOOLS Fin al Result Performing Organization Address [facility] Phone Number INTERFACE SYSTEM Refer to clinic/hospital department documented in this encounter Visit Diagnoses Diagnosis Dysuria- Primary documented in this encounter Care Teams Senior Product Manager Relationship Specialty [place] [address] [facility] [address] [facility] [place] [address] PCP - General 10/17/06 documented as of this encounter
--- OUTSIDE RECORDS SUMMARY | 2025-07-11 14:07 | XMS_ITS | Encounter Summary ---
Author Organization [facility] Address [address] [place] [address] Care Team Providers Care Stock Worker Name Role Phone Saul Varela MD Primary Care Provider [phone] Encounter Details Date Type Department Care Team (Late st Contact Info) Description 09/29/2006 Outpatient Historical [facility] Medicine [place] 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 TEXTILE EXAMINER Gender Identity Not on file Sexual Orientation Not on file documented as of this encounter Last Filed Vital Signs Vital Sign Reading Time Taken Comments Blood Pressure 114/80 09/29/2006 4:00 PM TEXTILE EXAMINER Pulse 76 09/29/2006 4:00 PM TEXTILE EXAMINER Temperature - - Respiratory Rate - - Oxygen Saturation - - Inhaled Oxygen Concentration - - Weight 88.5 kg (195 lb) 09/29/2006 4:00 PM TEXTILE EXAMINER Height - - Body Mass Index - - documented in this encounter Plan of Treatment Not on file documented as of this encounter Visit Diagnoses Not on filedocumented in this encounter Care Teams Stock Worker Relationship Specialty [place] [address] [place] [address] PCP - General 10/17/06 documented as of this encounter
--- OUTSIDE RECORDS SUMMARY | 2025-07-11 14:07 | XMS_ITS | Clinical Summary ---
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 Gender Identity Not on file Sexual Orientation Not on file Last Filed Vital Signs Vital Sign Reading Time Taken Comments Blood Pressure 114/80 09/29/2006 4:00 PM TRAINING DEVELOPER Pulse 76 09/29/2006 4:00 PM TRAINING DEVELOPER Temperature 36.6 C (97.9 F) 06/24/2004 10:40 AM CDT Respiratory Rate 16 02/06/2005 10:15 AM CDT Oxygen Saturation - - Inhaled Oxygen Concentration - - Weight 88.5 kg (195 lb) 09/29/2006 4:00 PM TRAINING DEVELOPER Height - - Body Mass Index - - Plan of Treatment Health Maintenance Due Date Last Done Comments DTAP/TDAP/TD VACCINES (1 - Tdap) 2002 HEPATITIS B VACCINES (1 of 3 - 19+ 3-dose series) 02/23 HPV VACCINES (1 - 3-dose SCDM series) 2010 INFLUENZA VACCINE (#1) 2025 Care Teams Station Baggage Agent Relationship Specialty [place] [address] [facility] [place] [address] PCP - General 10/17/06
--- OUTSIDE RECORDS SUMMARY | 2025-07-11 14:07 | XMS_ITS | Encounter Summary ---
Author Organization [facility] Address [address] [place] [address] Care Team Providers Care Senior Health Physics Technician Name Role Phone Saul Varela MD Primary Care Provider [phone] Encounter Details Date Type Department Care Team (Late st Contact Info) Description 10/17/2006 Emergency [facility] Chuck Patel Jr., MD [address] [place] [address] Er, Authorized P NO ADDRESS ON FILE Streptococcal Sore Throat (Primary Dx) Social History Tobacco Use Types Packs/Day Years Used Date Smoking Tobacco: Never Assessed Sex and Gender Information Value Date Recorded Sex Assigned at Not on file 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 [address] [place] [address] PCP - General 10/17/06 documented as of this encounter
--- OUTSIDE RECORDS SUMMARY | 2025-07-11 14:07 | XMS_ITS | Encounter Summary ---
Author Organization [facility] Address [address] [place] [address] Care Team Providers Care Global Recruiter Name Role Phone Saul Varela MD Primary Care Provider [phone] Encounter Details Date Type Department Care Team (Late st Contact Info) Description 08/05/2006 Outpatient Historical [facility] Family Medicine [facility] [address] [place] [address] [place] 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 [place] [address] PCP - General 10/17/06 documented as of this encounter
--- OUTSIDE RECORDS SUMMARY | 2025-07-11 14:07 | XMS_ITS | Encounter Summary ---
Author Organization [facility] Address [address] [place] [address] Care Team Providers Care String Winding Machine Operator Name Role Phone Saul Varela MD Primary Care Provider [phone] Encounter Details Date Type Department Care Team (Late st Contact Info) Description 08/05/2006 Outpatient Historical [facility] Family Medicine [facility] [address] [place] [address] [place] 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 [place] [address] PCP - General 10/17/06 documented as of this encounter
--- OUTSIDE RECORDS SUMMARY | 2025-07-11 14:07 | XMS_ITS | Encounter Summary ---
Author Organization [facility] Address [address] [place] [address] Care Team Providers Care Business Process Analyst Name Role Phone Saul Varela MD Primary Care Provider [phone] Encounter Details Date Type Department Care Team (Late st Contact Info) Description 03/03/2005 Outpatient Historical 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 [place] [address] PCP - General 10/17/06 documented as of this encounter
[2025-07-11 14:43] LABS: Strep Group A RT-PCR NOT DETECTED (Negative)
[2025-07-11 14:55] LABS: Influenza A QL RT-PCR Negative (Negative); Influenza B QL RT-PCR Negative (Negative); RSV RNA, RT-PCR Negative (Negative); SARS-CoV-2 RNA PCR Negative (Negative)
[2025-07-11 15:06] LABS: Negative Monotest Control Negative (Negative); Positive Monotest Control Positive (Positive)
[2025-07-11 15:21] VITALS: BP 144/94; PULSE 62; RESP 16; TEMP 36.8; O2SAT 99
== END 2025-07-11 15:24 | disposition home or self-care (01) ==
PROVIDERS: Emergency Provider Emergency Medicine; PCP Family Medicine
DX: J06.9 Acute upper respiratory infection, unspecified (principal); B97.89 Other viral agents as the cause of diseases classified elsewhere; Z20.822 Contact with and (suspected) exposure to COVID-19
CPT/HCPCS: 36415; 70486; 71046; 86308; 87637; 87651; 99284